=== PATIENT | female | born 1970 | race Caucasian/White ===

== ENCOUNTER 2017-08-20 00:39 | Emergency (ER) | payer BC, OTHER ==
[~2017-08-20] VITALS: Ht 175.3 cm; Wt 107.8 kg
[2017-08-20 00:41] VITALS: BP 140/88
[2017-08-20] MEDS ORDERED: FLECAINIDE (00:48)
[2017-08-20] MEDS ORDERED: [UNRECOGNIZED DRUG - REMARK] (00:48)
[2017-08-20] MEDS ORDERED: ALPR0.5T6 PO (00:48)
== END 2017-08-20 02:16 | disposition home or self-care (01) ==
LOC: ED 01:56
DX: R07.89 Other chest pain (principal); K21.0 Gastro-esophageal reflux disease with esophagitis; E03.9 Hypothyroidism, unspecified
CPT/HCPCS: 93005; 99283